=== PATIENT | male | born 1945 | race Caucasian/White ===

== ENCOUNTER 2019-06-14 08:37 | Outpatient (CLI) | payer MEDICARE, BC ==
[2019-06-14 09:40] LABS: Estimated GFR-MDRD - POC Greater than 90
--- NOTE | 2019-06-14 12:00 | CT ---
CT CHEST WITH CONTRAST: INDICATIONS: Persistent atrial fibrillation. Previous Watchman and atrial occlusion device placement. FINDINGS: There are coils and an occlusive device seen within the left atrial appendage. 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 The left atrium is otherwise normally opacified and appears unremarka ble. The pulmonary veins appear patent. Right atrium unremarkable in appearance. Thoracic aorta unremarkable. The pulmonary arteries are opacified and there is no evidence of proximal pulmonary embolus. The lungs show no evidence of infiltrate. Hazy density in the posterior lung base suggests chronic ch kota and pleural-based atelectasis. Images through the upper abdomen show numerous small low density lesions in the liver, suggesting hep atic cysts. IMPRESSION: 1. Atrial occlusive device in the left atrial appendage produces spray artifact. Left atrium otherwis e shows normal opacification. No acute lung process. 2. Numerous low density lesions in the liver suggesting cystic lesions. These are not adequately sarah acterized on this study and several of these are subcentimeter. The largest measures 1.7 cm in the po sterior left lobe. Consider hepatic ultrasound or further evaluation with abdomen CT with and without contrast following liver protocol as indicated clinically. POS: OFF
== END 2019-06-14 08:38 | disposition home or self-care (01) ==
LOC: BICCT 08:37
PROVIDERS: ATTEND Internal Medicine Cardiovascular Disease
DX: I48.19 Other persistent atrial fibrillation (principal); R06.02 Shortness of breath; K76.9 Liver disease, unspecified; Z95.828 Presence of other vascular implants and grafts
CPT/HCPCS: 71260; 82565

== ENCOUNTER 2021-10-15 15:31 | Outpatient (CLI) | payer MEDICARE, BC ==
[2021-10-15 17:16] LABS: Hemoglobin 14.7 g/dL (13.5-17.5); Mean Corpuscular HGB CONC 34.3 g/dL (32.0-36.0); Mean Corpuscular Hemoglobin 33.6 pg (27.0-33.0); Mean Corpuscular Volume 97.9 fl (81.2-95.1); Mean Platelet Volume 9.3 fl (7.4-10.4); Platelet Count 281 10x3/uL (150-450); RBC Distribution Width 12.4 % (11.5-14.5); Red Blood Cell (RBC) Count 4.38 10x6/uL (4.32-5.72); White Blood Cell (WBC) Count 9.9 10x3/uL (3.5-10.5)
[2021-10-15 17:28] LABS: PTT 25.8 sec (22.0-33.0); Prothrombin Time 10.6 sec (9.5-12.1)
[2021-10-15 17:31] LABS: Anion Gap 15 mmol/L (10-20); BUN (Urea Nitrogen) 16 mg/dL (8.4-25.7); Calc. Creatinine Clearance 0 mL/min (70-130); Calcium 9.5 mg/dL (7.8-10.44); Carbon Dioxide 25 mmol/L (23-31); Chloride 101 mmol/L (98-107); Glucose 124 mg/dL (83-110); Potassium 4.6 mmol/L (3.5-5.1); Sodium 136 mmol/L (136-145)
[2021-10-15 22:06] LABS: SARS-CoV-2 PCR by NAA Not Detected (NotDetected)
== END 2021-10-15 15:32 | disposition home or self-care (01) ==
LOC: LABBT 15:31
PROVIDERS: ATTEND Internal Medicine Cardiovascular Disease
DX: Z01.812 Encounter for preprocedural laboratory examination (principal); I48.4 Atypical atrial flutter; Z20.822 Contact with and (suspected) exposure to COVID-19
CPT/HCPCS: 80048; 85027; 85610; 85730; U0003; U0005

== ENCOUNTER 2021-10-17 05:56 | Day surgery (SDC) | payer MEDICARE, BC ==
[2021-10-16 10:04] VITALS: BMI 30.5
== END 2021-10-17 08:05 | disposition home or self-care (01) ==
LOC: SDC 05:56
PROVIDERS: ATTEND Internal Medicine Cardiovascular Disease
DX: I48.4 Atypical atrial flutter (principal); Z53.09 Procedure and treatment not carried out because of other contraindication; Z79.82 Long term (current) use of aspirin; Z79.84 Long term (current) use of oral hypoglycemic drugs; Z79.899 Other long term (current) drug therapy; Z88.1 Allergy status to other antibiotic agents
CPT/HCPCS: 93005; 93010